=== PATIENT | male | born 1995 | race Caucasian/White ===

== ENCOUNTER 2020-06-10 09:13 | Emergency (ER) | payer MEDICAID ==
[~2020-06-10] VITALS: Ht 182.9 cm; Wt 83.6 kg
[2020-06-10] MEDS ORDERED: dexamethasone sod phosphate 10mg/ml inj PO STA (09:36)
[2020-06-10 10:26] VITALS: BP 140/76
== END 2020-06-10 10:28 | disposition home or self-care (01) ==
LOC: ER 09:13
DX: B34.9 Viral infection, unspecified (principal)
CPT/HCPCS: 87077; 87081; 87880; 99283; J1100

== ENCOUNTER 2022-06-27 20:40 | Emergency (ER) | payer MEDICAID | END 2022-06-27 22:22 | disposition left against medical advice (07) | LOC: ER 20:40 | DX: K08.89 Other specified disorders of teeth and supporting structures (principal); Z53.21 Procedure and treatment not carried out due to patient leaving prior to being seen by health care provider ==